=== PATIENT | male | born 1975 | race Two or more races ===

== ENCOUNTER 2017-08-16 12:11 | Observation (INO) | payer OTHER ==
[2017-08-16 12:48] LABS: ADD MAN DIFF? NO
[2017-08-16 12:51] LABS: BASOPHILS % 0.4 % (0.0-2.0); EOSINOPHILS # 0.3 10^3/ul (0.0-0.5); EOSINOPHILS % 3.6 % (0.0-7.0); HEMATOCRIT 45.9 % (42.0-52.0); LYMPHOCYTES # 1.7 10^3/ul (0.8-2.9); LYMPHOCYTES % 19.2 % (15.0-51.0); MEAN CORPUSCULAR HEMOGLOBIN 32.7 pg (29.0-33.0); MEAN CORPUSCULAR HGB CONC 34.9 g/dl (32.0-37.0); MEAN CORPUSCULAR VOLUME 93.7 fl (82.0-101.0); MEAN PLATELET VOLUME 9.5 fl (7.4-10.4); MONOCYTE # 0.4 10^3/ul (0.3-0.9); MONOCYTES % 4.5 % (0.0-11.0); NEUTROPHIL # 6.4 10^3/ul (1.6-7.5); NEUTROPHILS % 71.4 % (39.0-77.0); PLATELET COUNT 205 10^3/UL (140-415); RED CELL DISTRIBUTION WIDTH 12.3 % (11.5-14.5)
[2017-08-16 12:51] LABS: WHITE BLOOD COUNT 8.9 10^3/ul (4.8-10.8)
[2017-08-16] MEDS: NITROGLYCERIN 2% 1 GM OINT PKT TD (12:52)
[2017-08-16] MEDS: ONDANSETRON 4 MG INJ IV (12:53)
[2017-08-16] MEDS: morphine 4 MG/ML VIAL IV (12:53)
[2017-08-16] MEDS: ASPIRIN 81 MG TAB PO (12:57)
[2017-08-16 13:07] LABS: ALANINE AMINOTRANSFERASE 54 IU/L (13-69); ALBUMIN 4.4 g/dl (3.3-4.9); ALBUMIN/GLOBULIN RATIO 1.25; ALKALINE PHOSPHATASE 122 IU/L (42-121); ANION GAP 17 (8-16); ASPARTATE AMINO TRANSFERASE 84 IU/L (15-46); BILIRUBIN,INDIRECT 0.1 mg/dl (0-1.1); BILIRUBIN,TOTAL 0.1 mg/dl (0.2-1.3); BLOOD UREA NITROGEN 8 mg/dl (7-20); CALCIUM 9.7 mg/dl (8.4-10.2); CARBON DIOXIDE 25 mmol/L (21-31); CHLORIDE 102 mmol/L (97-110); CREATININE 0.61 mg/dl (0.61-1.24); GLUCOSE 134 mg/dl (70-220); POTASSIUM 3.8 mmol/L (3.5-5.1); SODIUM 140 mmol/L (135-144); TOTAL PROTEIN 7.9 g/dl (6.1-8.1)
[2017-08-16 13:17] LABS: INR 0.87; PARTIAL THROMBOPLASTIN TIME 27.2 Sec (25.0-35.0); PROTIME 11.9 Sec (11.9-14.9); PT RATIO 0.9
[2017-08-16 13:21] LABS: TROPONIN-I < 0.012 ng/ml (0.00-0.12)
[2017-08-16] MEDS: NICARDipine HCL 30 MG CAPSULE PO (15:18)
[2017-08-16] MEDS ORDERED: ONDANSETRON 4 MG INJ IV ×2 (16:30→17:00)
[2017-08-16] MEDS ORDERED: ACETAMINOPHEN 325 MG TAB PO (16:30)
[2017-08-16] MEDS ORDERED: ZOLPIDEM 5 MG TAB PO (17:00)
[2017-08-16] MEDS ORDERED: DOCUSATE SODIUM 100 MG CAP PO (17:00)
[2017-08-16] MEDS ORDERED: NACL 0.9% 3 ML SYG IV (17:00)
[2017-08-16 17:16] LABS: D-DIMER 309.86 ng/ml (<460)
[2017-08-16 17:42] LABS: CREATINE KINASE 95 IU/L (23-200)
[2017-08-16] MEDS: AMLODIPINE 5 MG TAB PO (17:51)
[2017-08-16] MEDS: METOPROLOL (XL) 25 MG TAB PO ×2 (17:51→22:39)
[2017-08-16 17:55] LABS: CK INDEX 1.1
[2017-08-16 17:59] LABS: CK-MB 1.01 ng/ml (0.0-2.4); TROPONIN-I < 0.012 ng/ml (0.00-0.12)
[2017-08-16] MEDS ORDERED: hydrALAzine 20 MG INJ IV (18:00)
[2017-08-16] MEDS: FAMOTIDINE 20 MG INJ IV (22:40)
[2017-08-16] MEDS: ATORVASTATIN 20 MG TAB PO (22:40)
[2017-08-16] MEDS: HYDROCODONE/APAP (5/325) TAB PO (22:44)
[2017-08-16] MEDS: ACETAMINOPHEN 325 MG TAB PO (22:44)
[2017-08-16 23:16] LABS: CREATINE KINASE 86 IU/L (23-200)
[2017-08-16 23:30] LABS: CK-MB 0.88 ng/ml (0.0-2.4); TROPONIN-I < 0.012 ng/ml (0.00-0.12)
[2017-08-17 08:59] LABS: CHOLESTEROL 223 mg/dl (100-200)
[2017-08-17 08:59] LABS: CHOL/HDL RATIO 5.1 RATIO; HDL CHOLESTEROL 43 mg/dl (27-67); LDL CHOLESTEROL,CALCULATED 90 mg/dl; TRIGLYCERIDES 452 mg/dl (0-149)
[2017-08-17] MEDS: ASPIRIN (EC) 81 MG TAB PO (09:07)
[2017-08-17] MEDS: FAMOTIDINE 20 MG INJ IV ×2 (09:07→20:21)
[2017-08-17] MEDS: AMLODIPINE 5 MG TAB PO (09:08)
[2017-08-17] MEDS: HYDROCODONE/APAP (5/325) TAB PO ×2 (09:08→17:26)
[2017-08-17] MEDS: METOPROLOL (XL) 25 MG TAB PO ×2 (09:10→20:20)
[2017-08-17] MEDS: ENOXAPARIN 40 MG/0.4 ML SYG SC (09:10)
[2017-08-17 09:12] LABS: FREE THYROXINE INDEX (Calc) 2.22 ug/ml (0.65-3.89); T3 UPTAKE 30.9 % (23.5-40.5); T4 (THYROXINE) 7.2 ug/dl (5.5-11.0)
[2017-08-17] MEDS: GEMFIBROZIL 600 MG TAB PO ×2 (13:00→17:26)
[2017-08-17] MEDS: NICOTINE (21 MG/24 HR) PATCH TRANSDERM (14:45)
[2017-08-17] MEDS: HYDROCHLOROTHIAZIDE 25 MG TAB PO (14:46)
[2017-08-17] MEDS: morphine 2 MG INJ IV (14:47)
[2017-08-17] MEDS ORDERED: NITROGLYCERIN (SL) 0.4 MG TAB SL (17:00)
[2017-08-17] MEDS: morphine LIQ (10 MG/5 ML) CUP PO (20:21)
[2017-08-18] MEDS: HYDROCODONE/APAP (5/325) TAB PO ×3 (05:12→18:26)
[2017-08-18] MEDS: ASPIRIN (EC) 81 MG TAB PO (09:11)
[2017-08-18] MEDS: NICOTINE (21 MG/24 HR) PATCH TRANSDERM (09:11)
[2017-08-18] MEDS: AMLODIPINE 5 MG TAB PO (09:12)
[2017-08-18] MEDS: GEMFIBROZIL 600 MG TAB PO ×2 (09:12→18:26)
[2017-08-18] MEDS: METOPROLOL (XL) 25 MG TAB PO (09:12)
[2017-08-18] MEDS: FAMOTIDINE 20 MG INJ IV (09:13)
[2017-08-18] MEDS: HYDROCHLOROTHIAZIDE 25 MG TAB PO (09:14)
[2017-08-18] MEDS: REGADENOSON 0.4 MG/5 ML SYG (13:00)
[2017-08-18] MEDS: ENOXAPARIN 40 MG/0.4 ML SYG SC (14:10)
[2017-08-18] MEDS ORDERED: ASPIRIN (EC) 81 MG TAB PO (21:00)
[2017-08-19] MEDS ORDERED: INFLUENZA VIRUS VACCINE 0.5 ML (DISPENSING) IM* (09:00)
== END 2017-08-18 19:00 | disposition home or self-care (01) ==
LOC: E/R 12:11 → MS4 16:08
DX: R07.89 Other chest pain (principal); I10 Essential (primary) hypertension; E78.5 Hyperlipidemia, unspecified; R01.1 Cardiac murmur, unspecified; Z72.0 Tobacco use; Z79.82 Long term (current) use of aspirin
CPT/HCPCS: 36415; 71045; 78452; 80053; 80061; 82550; 82553; 84436; 84479; 84484; 85025; 85378; 85610; 85730; 93005; 93017; 93306; 96374; 96375; 99285-25; G0378